=== PATIENT | female | born 1945 | race African-American/Black ===

== ENCOUNTER 2017-07-28 23:17 | Inpatient (IN) | payer MEDICARE ==
[~2017-07-28] VITALS: Ht 157.5 cm; Wt 89.4 kg
[~2017-07-28 23:17] MED LIST: CINA30 PO; CLOP75TA33 PO; DOCU-150 PO; ISOS30TA6 PO; LISI-604 PO; OMEP20TA2 PO; PRAV40TA58 PO; SEVE800T8 PO
[2017-07-29] VITALS (14 sets, daily range): BP systolic 87–159; BP diastolic 40–80
[2017-07-29] MEDS ORDERED: MORPHINE SULFATE 4 MG/ML CPJ (NOT FOR IM USE) IV STA
[2017-07-29 00:39] LABS: BASOPHILS % 0.5 % (0.0-2.0); EOSINOPHILS % 2.8 % (0.0-5.0); HEMATOCRIT. 41.1 % (36.0-48.0); HEMOGLOBIN. 13.5 g/dL (12.0-16.0); MEAN CORPUSCULAR HEMOGLOBIN 29.6 pg (28.0-32.0); MEAN CORPUSCULAR VOLUME 90.3 fL (81.0-99.0); MEAN PLATELET VOLUME 10.9 fl (7.4-10.4); MONOCYTES % 5.2 % (2.0-8.0); NEUTROPHILS % 78.5 % (40.0-76.0); PLATELET 142 x1000/uL (130-400); RED BLOOD CELL COUNT 4.55 mill/uL (4.2-5.4); RED CELL DISTRIBUTION WIDTH 18.3 % (11.6-14.6)
[2017-07-29 00:44] LABS: CHLORIDE 101 mEq/L (98-107)
[2017-07-29 01:14] LABS: INR 1.2
[2017-07-29] MEDS ORDERED: MORPHINE SULFATE 4 MG/ML CPJ (NOT FOR IM USE) IV ONE (01:45)
[2017-07-29] MEDS ORDERED: SODIUM CHLORIDE 0.9% 1,000 ML IV ONE ×2 (01:45→12:12)
[2017-07-29] MEDS ORDERED: PIPERACILLIN/TAZOBACTAM 3.375GM/50ML PREMIX IV ONE ×2 (02:00→09:00)
[2017-07-29] MEDS ORDERED: HYDROMORPHONE HCL/PF 2MG/ML CPJ IV PRN ×2 (06:30→12:15)
[2017-07-29] MEDS ORDERED: CLONIDINE 0.1MG TABLET PO PRN (06:30)
[2017-07-29] MEDS ORDERED: ENOXAPARIN 40MG/0.4ML SYR SUBCUT SCH (06:30)
[2017-07-29] MEDS ORDERED: ACETAMINOPHEN 325MG TABLET PO PRN (06:30)
[2017-07-29] MEDS ORDERED: DIPHENHYDRAMINE 50MG/ML VIAL IV PRN (06:30)
[2017-07-29] MEDS ORDERED: ONDANSETRON HCL 4MG/2ML VIAL IV PRN ×3 (06:30→12:15)
[2017-07-29] MEDS ORDERED: MAGNESIUM/ALUMINUM HYDROXIDE/SIMETHICONE 30ML UDC PO PRN (06:30)
[2017-07-29] MEDS ORDERED: DOCUSATE SODIUM 100MG CAPSULE PO PRN (06:30)
[2017-07-29] MEDS ORDERED: NA PHOS,M-B/NA PHOS,DI-BA ENEMA 118ML PR PRN (06:30)
[2017-07-29] MEDS ORDERED: LORAZEPAM 2MG/ML CPJ IV PRN (06:30)
[2017-07-29] MEDS ORDERED: IPRATROPIUM/ALBUTEROL 0.5-3(2.5)MG/3ML NEB INH PRN (06:30)
[2017-07-29] MEDS: HYDROCODONE/ACETAMINOPHEN 5/325MG TABLET PO PRN (07:12)
[2017-07-29] MEDS ORDERED: OMEPRAZOLE 20MG CAPSULE EXTENDED RELEASE PO SCH (07:20)
[2017-07-29] MEDS ORDERED: MEDICATION NOT ON FORMULARY EA (Omeprazole 1 TAB) PO SCH (09:00)
[2017-07-29] MEDS ORDERED: DOCUSATE SODIUM 100MG CAPSULE PO SCH (09:00)
[2017-07-29] MEDS ORDERED: LEVOFLOXACIN 500MG PREMIX 100 ML IV NR (09:00)
[2017-07-29] MEDS ORDERED: MEDICATION NOT ON FORMULARY EA (Pravastatin Sodium 1 TAB) PO SCH (09:00)
[2017-07-29] MEDS ORDERED: PIPERACILLIN/TAZ 3.375G PREMIX 50 ML IV NR (09:01)
[2017-07-29] MEDS ORDERED: METRONIDAZOLE 500 MG PREMIX 0 ML IV ONE (09:09)
[2017-07-29] MEDS ORDERED: LEVOFLOXACIN 500MG PREMIX 0 ML IV ONE (09:10)
[2017-07-29] MEDS ORDERED: BUPIVACAINE HCL 0.5% (5MG/ML) 50ML ONE (09:10)
[2017-07-29] MEDS ORDERED: ROCURONIUM BROMIDE 10MG/ML VIAL 5ML IV ONE (09:15)
[2017-07-29] MEDS ORDERED: SUCCINYLCHOLINE CHLORIDE 200MG/10ML VIAL IV ONE (09:15)
[2017-07-29] MEDS ORDERED: PHENYLEPHRINE HCL 10 MG/ML 1ML (IV VIAL) IV ONE (09:15)
[2017-07-29] MEDS ORDERED: SODIUM CHLORIDE 0.9% 100 ML IV ONE (09:15)
[2017-07-29] MEDS ORDERED: EPHEDRINE SULFATE 50MG/ML VIAL ONE (09:15)
[2017-07-29] MEDS ORDERED: PROPOFOL 200MG/20ML VIAL IV ONE (09:15)
[2017-07-29] MEDS ORDERED: LIDOCAINE HCL/PF 1% 10 MG/ML 5ML VIAL ONE (09:15)
[2017-07-29] MEDS ORDERED: ALBUMIN HUMAN 12.5G/250ML (5%) IV ONE (09:22)
[2017-07-29] MEDS ORDERED: FENTANYL CITRATE/PF 50MCG/ML 2ML VIAL ONE (09:22)
[2017-07-29] MEDS ORDERED: MIDAZOLAM HCL 2 MG/2 ML VIAL ONE (09:22)
[2017-07-29] MEDS ORDERED: METRONIDAZOLE 500 MG PREMIX 100 ML IV SCH ×2 (10:00→14:00)
[2017-07-29] MEDS ORDERED: FAMOTIDINE 20MG/2ML VIAL IV SCH (10:40)
[2017-07-29] MEDS ORDERED: ETOMIDATE 2MG/ML 10ML VIAL IV ONE (10:47)
[2017-07-29] MEDS ORDERED: DEXAMETHASONE 4MG/ML 1ML VIAL ONE (11:15)
[2017-07-29] MEDS ORDERED: DEXT 5%/0.45% NACL KCL 20MEQ/L 1,000 ML IV SCH (11:30)
[2017-07-29 14:14] LABS: BG CARBOXYHEMOGLOBIN 1.6 % (0.5-1.5); BG DEOXYHEMOGLOBIN 0.7 % (0.0-5.0); BG FRACTION INSPIRED OXYGEN 50; BG HCO3 ACT 20.5 mmol/L (22.0-26.0); BG METHEMOGLOBIN 0.3 % (0.0-1.5); BG OXYGEN SATURATION 99.3 % (92.0-98.5); BG OXYHEMOGLOBIN 97.4 % (94.0-97.0); BG PCO2 29.1 mmHg (35.0-45.0); BG PH 7.465 (7.350-7.450); BG PO2 169.4 mmHg (75.0-100.0); BG PRESSURE SUPPORT 24; BG SAMPLE SITE LEFT RADIAL; BG TIDAL VOLUME(mL) 500 mL; BG TOTAL HEMOGLOBIN 14.2 g/dL (12.0-18.0); BG VENT MODE VENT - SIMV; BG VENT RATE 10 set
[2017-07-29] MEDS: MORPHINE SULFATE 4 MG/ML CPJ (NOT FOR IM USE) IV PRN (15:23)
[2017-07-29] MEDS ORDERED: PIPERACILLIN/TAZOBACTAM 2.25 G in DEXTROSE 5% WATER 50 ML IV SCH (18:00)
[2017-07-29] MEDS ORDERED: PROPOFOL 10MG/ML 100ML 100 ML IV PRN (18:46)
[2017-07-29 19:18] LABS: BG BASE EXCESS -4.4 mmol/L (-2.0-2.0); BG DEOXYHEMOGLOBIN 1.4 % (0.0-5.0); BG FRACTION INSPIRED OXYGEN 40; BG HCO3 ACT 20.4 mmol/L (22.0-26.0); BG METHEMOGLOBIN 0.1 % (0.0-1.5); BG OXYGEN SATURATION 98.6 % (92.0-98.5); BG OXYHEMOGLOBIN 97.5 % (94.0-97.0); BG PCO2 36.8 mmHg (35.0-45.0); BG PH 7.362 (7.350-7.450); BG PO2 132.5 mmHg (75.0-100.0); BG PRESSURE SUPPORT 8; BG SAMPLE SITE LEFT RADIAL; BG TOTAL HEMOGLOBIN 13.6 g/dL (12.0-18.0); BG VENT MODE VENT - CPAP
[2017-07-29] MEDS: IPRATROPIUM/ALBUTEROL 0.5-3(2.5)MG/3ML NEB HHN SCH (20:19)
[2017-07-29] MEDS: ATORVASTATIN CALCIUM 10MG TABLET PO SCH (20:26)
[2017-07-29] MEDS: PIPERACILLIN/TAZOBACTAM 2.25 G in DEXTROSE 5% WATER 50 ML IV SCH (20:32)
[2017-07-30] VITALS (58 sets, daily range): BP systolic 93–164; BP diastolic 32–118
[2017-07-30] MEDS: IPRATROPIUM/ALBUTEROL 0.5-3(2.5)MG/3ML NEB HHN SCH ×4 (01:17→20:46)
[2017-07-30] MEDS: PIPERACILLIN/TAZOBACTAM 2.25 G in DEXTROSE 5% WATER 50 ML IV SCH (03:45)
[2017-07-30 05:41] LABS: HEMATOCRIT. 39.2 % (36.0-48.0); HEMOGLOBIN. 12.8 g/dL (12.0-16.0); MEAN CORPUSCULAR HEMOGLOBIN 29.8 pg (28.0-32.0); MEAN CORPUSCULAR VOLUME 91.1 fL (81.0-99.0); MEAN PLATELET VOLUME 11.1 fl (7.4-10.4); PLATELET 112 x1000/uL (130-400); RED CELL DISTRIBUTION WIDTH 19.1 % (11.6-14.6)
[2017-07-30 06:22] LABS: CHLORIDE 102 mEq/L (98-107)
[2017-07-30 06:34] LABS: LDL CHOLESTEROL 39 mg/dL (5-100)
[2017-07-30 06:36] LABS: HDL CHOLESTEROL 35 mg/dL (40-59); T4 FREE 0.98 ng/dL (0.76-1.46)
[2017-07-30] MEDS: SEVELAMER CARBONATE 800 MG TABLET PO SCH ×3 (07:00→17:00)
[2017-07-30 07:57] LABS: BG BASE EXCESS -6.1 mmol/L (-2.0-2.0); BG CARBOXYHEMOGLOBIN 0.7 % (0.5-1.5); BG FRACTION INSPIRED OXYGEN 21; BG HCO3 ACT 18.8 mmol/L (22.0-26.0); BG METHEMOGLOBIN 0.3 % (0.0-1.5); BG PCO2 35.5 mmHg (35.0-45.0); BG PH 7.342 (7.350-7.450); BG PO2 86.9 mmHg (75.0-100.0); BG SAMPLE SITE LEFT BRACHIAL; BG TOTAL HEMOGLOBIN 13.3 g/dL (12.0-18.0); BG VENT MODE ROOM AIR
[2017-07-30] MEDS: ENOXAPARIN 30MG/0.3ML SYR SUBCUT SCH (09:00)
[2017-07-30] MEDS: ISOSORBIDE MONONITRATE 30MG TABLET SR 24HR PO SCH (09:00)
[2017-07-30] MEDS: LISINOPRIL 20MG TABLET PO SCH (09:00)
[2017-07-30] MEDS: CLOPIDOGREL 75MG TABLET PO SCH (09:00)
[2017-07-30 10:44] LABS: NUCLEATED RED BLOOD CELLS 2 /100 WBC; PLATELET ESTIMATE SLIGHTLY DECREASED
[2017-07-30] MEDS: DOCUSATE SODIUM 250MG CAPSULE PO SCH (12:00)
[2017-07-30] MEDS: DEXT 5%/0.45% NACL 1000ML 1,000 ML IV SCH ×2 (13:03→23:11)
[2017-07-30] MEDS: PIPERACILLIN/TAZ 2.25G PREMIX 50 ML IV SCH ×2 (15:27→23:09)
[2017-07-30] MEDS: CINACALCET HCL 30MG TABLET PO SCH (17:00)
[2017-07-30] MEDS: MORPHINE SULFATE 4 MG/ML CPJ (NOT FOR IM USE) IV PRN (20:10)
[2017-07-30] MEDS: ATORVASTATIN CALCIUM 10MG TABLET PO SCH (21:02)
[2017-07-30 23:55] LABS: CREATINE KINASE MB FRACTION 1.3 ng/mL (0.5-3.6)
[2017-07-31] VITALS (44 sets, daily range): BP systolic 82–169; BP diastolic 40–112
[2017-07-31] MEDS: IPRATROPIUM/ALBUTEROL 0.5-3(2.5)MG/3ML NEB HHN SCH ×4 (01:30→20:24)
[2017-07-31 05:58] LABS: HEMATOCRIT. 37.5 % (36.0-48.0); HEMOGLOBIN. 12.4 g/dL (12.0-16.0); MEAN CORPUSCULAR HEMOGLOBIN 30.1 pg (28.0-32.0); MEAN PLATELET VOLUME 11.2 fl (7.4-10.4); PLATELET 108 x1000/uL (130-400); RED BLOOD CELL COUNT 4.12 mill/uL (4.2-5.4)
[2017-07-31 06:12] LABS: CREATINE KINASE MB FRACTION 1.5 ng/mL (0.5-3.6)
[2017-07-31] MEDS: PIPERACILLIN/TAZ 2.25G PREMIX 50 ML IV SCH ×3 (06:26→17:02)
[2017-07-31] MEDS: SEVELAMER CARBONATE 800 MG TABLET PO SCH ×3 (06:26→16:13)
[2017-07-31] MEDS: MORPHINE SULFATE 4 MG/ML CPJ (NOT FOR IM USE) IV PRN ×3 (06:41→17:03)
[2017-07-31 07:20] LABS: NUCLEATED RED BLOOD CELLS 1 /100 WBC; PLATELET ESTIMATE SLIGHTLY DECREASED
[2017-07-31] MEDS: ENOXAPARIN 30MG/0.3ML SYR SUBCUT SCH (09:00)
[2017-07-31] MEDS: LISINOPRIL 20MG TABLET PO SCH (09:00)
[2017-07-31] MEDS: CLOPIDOGREL 75MG TABLET PO SCH (09:00)
[2017-07-31] MEDS: ISOSORBIDE MONONITRATE 30MG TABLET SR 24HR PO SCH (09:00)
[2017-07-31] MEDS ORDERED: LEVOFLOXACIN 250MG PREMIX 50 ML IV SCH (09:00)
[2017-07-31] MEDS: DOCUSATE SODIUM 250MG CAPSULE PO SCH (09:00)
[2017-07-31] MEDS: PANTOPRAZOLE SODIUM 40 MG/VIAL IV SCH (09:10)
[2017-07-31] MEDS: DEXT 5%/0.45% NACL 1000ML 1,000 ML IV SCH ×2 (10:34→22:18)
[2017-07-31] MEDS: CINACALCET HCL 30MG TABLET PO SCH (16:13)
[2017-07-31 17:48] LABS: CREATINE KINASE MB FRACTION 1.2 ng/mL (0.5-3.6)
[2017-07-31] MEDS: HYDRALAZINE 20MG/ML VIAL IV PRN (20:14)
[2017-07-31] MEDS: ATORVASTATIN CALCIUM 10MG TABLET PO SCH (20:51)
[2017-08-01] VITALS (28 sets, daily range): BP systolic 130–182; BP diastolic 63–97
[2017-08-01] MEDS: PIPERACILLIN/TAZ 2.25G PREMIX 50 ML IV SCH ×4 (00:49→20:00)
[2017-08-01] MEDS: MORPHINE SULFATE 4 MG/ML CPJ (NOT FOR IM USE) IV PRN ×2 (00:52→08:47)
[2017-08-01] MEDS: IPRATROPIUM/ALBUTEROL 0.5-3(2.5)MG/3ML NEB HHN SCH ×2 (01:59→20:08)
[2017-08-01] MEDS: HYDRALAZINE 20MG/ML VIAL IV PRN (03:26)
[2017-08-01 06:01] LABS: HEMATOCRIT. 36.9 % (36.0-48.0); HEMOGLOBIN. 12.3 g/dL (12.0-16.0); MEAN PLATELET VOLUME 10.3 fl (7.4-10.4); PLATELET 111 x1000/uL (130-400); RED CELL DISTRIBUTION WIDTH 19.1 % (11.6-14.6)
[2017-08-01 06:23] LABS: PHOSPHORUS 5.7 mg/dL (2.5-4.9)
[2017-08-01] MEDS: SEVELAMER CARBONATE 800 MG TABLET PO SCH ×3 (06:24→18:00)
[2017-08-01 07:25] LABS: NUCLEATED RED BLOOD CELLS 2 /100 WBC; PLATELET ESTIMATE SLIGHTLY DECREASED
[2017-08-01] MEDS: DEXT 5%/0.45% NACL 1000ML 1,000 ML IV SCH ×2 (08:55→18:57)
[2017-08-01] MEDS: ISOSORBIDE MONONITRATE 30MG TABLET SR 24HR PO SCH (09:00)
[2017-08-01] MEDS: LISINOPRIL 20MG TABLET PO SCH (09:00)
[2017-08-01] MEDS: PANTOPRAZOLE SODIUM 40 MG/VIAL IV SCH (09:00)
[2017-08-01] MEDS: CLOPIDOGREL 75MG TABLET PO SCH (09:00)
[2017-08-01] MEDS: DOCUSATE SODIUM 250MG CAPSULE PO SCH (09:00)
[2017-08-01] MEDS: ENOXAPARIN 30MG/0.3ML SYR SUBCUT SCH (09:00)
[2017-08-01] MEDS ORDERED: DOCUSATE SODIUM 100MG CAPSULE PO PRN (11:00)
[2017-08-01] MEDS: CINACALCET HCL 30MG TABLET PO SCH (17:00)
[2017-08-01] MEDS: ATORVASTATIN CALCIUM 10MG TABLET PO SCH (21:00)
[2017-08-01] MEDS: CARVEDILOL 3.125 MG TABLET PO SCH ×2 (21:00→22:00)
[2017-08-02] VITALS (12 sets, daily range): BP systolic 88–146; BP diastolic 50–76
[2017-08-02] MEDS: IPRATROPIUM/ALBUTEROL 0.5-3(2.5)MG/3ML NEB HHN SCH ×4 (00:31→21:36)
[2017-08-02] MEDS: PIPERACILLIN/TAZ 2.25G PREMIX 50 ML IV SCH ×3 (01:44→17:31)
[2017-08-02] MEDS: DEXT 5%/0.45% NACL 1000ML 1,000 ML IV SCH ×3 (01:45→20:45)
[2017-08-02] MEDS ORDERED: LIDOCAINE HCL/PF 1% 10 MG/ML 5ML VIAL ONE (08:53)
[2017-08-02] MEDS: ISOSORBIDE MONONITRATE 30MG TABLET SR 24HR PO SCH (09:00)
[2017-08-02] MEDS: LISINOPRIL 20MG TABLET PO SCH (09:00)
[2017-08-02] MEDS: CARVEDILOL 3.125 MG TABLET PO SCH ×2 (09:00→21:00)
[2017-08-02 09:10] LABS: HEMATOCRIT. 39.2 % (36.0-48.0); HEMOGLOBIN. 12.4 g/dL (12.0-16.0); MEAN CORPUSCULAR HEMOGLOBIN 29.1 pg (28.0-32.0); MEAN CORPUSCULAR VOLUME 91.8 fL (81.0-99.0); PLATELET 89 x1000/uL (130-400); RED BLOOD CELL COUNT 4.27 mill/uL (4.2-5.4); RED CELL DISTRIBUTION WIDTH 18.9 % (11.6-14.6)
[2017-08-02] MEDS ORDERED: HEPARIN 100 UNITS/1 ML VIAL IVF PRN (09:15)
[2017-08-02] MEDS: SEVELAMER CARBONATE 800 MG TABLET PO SCH ×3 (09:49→17:31)
[2017-08-02] MEDS: DOCUSATE SODIUM 250MG CAPSULE PO SCH (09:49)
[2017-08-02] MEDS: PANTOPRAZOLE SODIUM 40 MG/VIAL IV SCH (09:49)
[2017-08-02] MEDS: ENOXAPARIN 30MG/0.3ML SYR SUBCUT SCH (09:53)
[2017-08-02] MEDS: CLOPIDOGREL 75MG TABLET PO SCH (09:56)
[2017-08-02] MEDS: CINACALCET HCL 30MG TABLET PO SCH (17:31)
[2017-08-02] MEDS: ATORVASTATIN CALCIUM 10MG TABLET PO SCH (21:00)
[2017-08-03] VITALS (12 sets, daily range): BP systolic 88–114; BP diastolic 21–71
[2017-08-03] MEDS: PIPERACILLIN/TAZ 2.25G PREMIX 50 ML IV SCH ×3 (01:51→17:28)
[2017-08-03] MEDS: IPRATROPIUM/ALBUTEROL 0.5-3(2.5)MG/3ML NEB HHN SCH ×4 (02:49→21:04)
[2017-08-03] MEDS: HYDROCODONE/ACETAMINOPHEN 5/325MG TABLET PO PRN (03:31)
[2017-08-03] MEDS: DEXT 5%/0.45% NACL 1000ML 1,000 ML IV SCH ×2 (05:51→17:29)
[2017-08-03 06:39] LABS: HEMATOCRIT 36.7 % (36.0-48.0); MEAN CORPUSCULAR HEMOGLOBIN 29.2 pg (28.0-32.0); MEAN CORPUSCULAR VOLUME 89.3 fL (81.0-99.0); PLATELET 97 x1000/uL (130-400); RED BLOOD CELL COUNT 4.11 mill/uL (4.2-5.4); RED CELL DISTRIBUTION WIDTH 18.3 % (11.6-14.6)
[2017-08-03] MEDS: ISOSORBIDE MONONITRATE 30MG TABLET SR 24HR PO SCH (08:53)
[2017-08-03] MEDS: PANTOPRAZOLE SODIUM 40 MG/VIAL IV SCH (08:53)
[2017-08-03] MEDS: CLOPIDOGREL 75MG TABLET PO SCH (08:53)
[2017-08-03] MEDS: DOCUSATE SODIUM 250MG CAPSULE PO SCH (08:53)
[2017-08-03] MEDS: BISACODYL 5MG TABLET PO PRN (08:53)
[2017-08-03] MEDS: SEVELAMER CARBONATE 800 MG TABLET PO SCH ×3 (08:53→17:28)
[2017-08-03] MEDS: CARVEDILOL 3.125 MG TABLET PO SCH ×2 (08:53→20:28)
[2017-08-03] MEDS: LISINOPRIL 20MG TABLET PO SCH (08:54)
[2017-08-03] MEDS: ENOXAPARIN 30MG/0.3ML SYR SUBCUT SCH (08:55)
[2017-08-03 12:44] LABS: NUCLEATED RED BLOOD CELLS 1 /100 WBC; PLATELET ESTIMATE DECREASED
[2017-08-03] MEDS: CINACALCET HCL 30MG TABLET PO SCH (17:28)
[2017-08-03] MEDS: ATORVASTATIN CALCIUM 10MG TABLET PO SCH (20:38)
[2017-08-03] MEDS: SODIUM CHLORIDE 0.9% 250 ML IV SCH ×2 (22:40→23:45)
[2017-08-04] VITALS (12 sets, daily range): BP systolic 92–119; BP diastolic 42–77
[2017-08-04] MEDS: PIPERACILLIN/TAZ 2.25G PREMIX 50 ML IV SCH ×2 (00:20→09:04)
[2017-08-04] MEDS: IPRATROPIUM/ALBUTEROL 0.5-3(2.5)MG/3ML NEB HHN SCH ×4 (01:15→20:59)
[2017-08-04] MEDS: DEXT 5%/0.45% NACL 1000ML 1,000 ML IV SCH ×3 (02:59→22:45)
[2017-08-04] MEDS: ISOSORBIDE MONONITRATE 30MG TABLET SR 24HR PO SCH (09:00)
[2017-08-04] MEDS: CARVEDILOL 3.125 MG TABLET PO SCH ×2 (09:00→20:36)
[2017-08-04] MEDS: LISINOPRIL 20MG TABLET PO SCH (09:00)
[2017-08-04] MEDS: SEVELAMER CARBONATE 800 MG TABLET PO SCH ×3 (09:01→17:14)
[2017-08-04] MEDS: CLOPIDOGREL 75MG TABLET PO SCH (09:02)
[2017-08-04] MEDS: DOCUSATE SODIUM 250MG CAPSULE PO SCH (09:03)
[2017-08-04] MEDS: PANTOPRAZOLE SODIUM 40 MG/VIAL IV SCH (09:03)
[2017-08-04] MEDS: BISACODYL 5MG TABLET PO PRN (09:03)
[2017-08-04] MEDS: ENOXAPARIN 30MG/0.3ML SYR SUBCUT SCH (09:05)
[2017-08-04] MEDS ORDERED: BISACODYL 5MG TABLET PO NR (12:15)
[2017-08-04] MEDS ORDERED: LEVOFLOXACIN 500MG TABLET PO NR (13:45)
[2017-08-04] MEDS: CINACALCET HCL 30MG TABLET PO SCH (17:12)
[2017-08-04] MEDS: ATORVASTATIN CALCIUM 10MG TABLET PO SCH (20:31)
[2017-08-04] MEDS: AMOXICILLIN/POTASSIUM CLAVULANATE 500/125MG TAB PO SCH (20:31)
[2017-08-05] VITALS (12 sets, daily range): BP systolic 94–130; BP diastolic 27–71
[2017-08-05] MEDS: IPRATROPIUM/ALBUTEROL 0.5-3(2.5)MG/3ML NEB HHN SCH ×4 (00:52→20:42)
[2017-08-05] MEDS: GUAIFENESIN 200MG/10ML SUGAR FREE UDC PO PRN (06:27)
[2017-08-05] MEDS: LISINOPRIL 20MG TABLET PO SCH (09:00)
[2017-08-05] MEDS: CARVEDILOL 3.125 MG TABLET PO SCH ×2 (09:00→21:00)
[2017-08-05] MEDS: ISOSORBIDE MONONITRATE 30MG TABLET SR 24HR PO SCH (09:00)
[2017-08-05] MEDS: SEVELAMER CARBONATE 800 MG TABLET PO SCH ×3 (10:00→18:57)
[2017-08-05] MEDS: CLOPIDOGREL 75MG TABLET PO SCH (10:01)
[2017-08-05] MEDS: AMOXICILLIN/POTASSIUM CLAVULANATE 500/125MG TAB PO SCH (10:01)
[2017-08-05] MEDS: PANTOPRAZOLE SODIUM 40 MG/VIAL IV SCH (10:01)
[2017-08-05] MEDS: DOCUSATE SODIUM 250MG CAPSULE PO SCH (10:01)
[2017-08-05] MEDS: ENOXAPARIN 30MG/0.3ML SYR SUBCUT SCH (10:02)
[2017-08-05] MEDS ORDERED: ONDANSETRON HCL 4MG/2ML VIAL IV PRN (11:15)
[2017-08-05] MEDS: PIPERACILLIN/TAZOBACTAM 2.25 G in DEXTROSE 5% WATER 50 ML IV SCH ×2 (16:23→22:09)
[2017-08-05 17:47] LABS: BASOPHILS % 0.2 % (0.0-2.0); EOSINOPHILS % 5.5 % (0.0-5.0); HEMOGLOBIN. 12.6 g/dL (12.0-16.0); LYMPHOCYTES % 14.6 % (20.0-50.0); MEAN CORPUSCULAR HEMOGLOBIN 30.1 pg (28.0-32.0); MEAN CORPUSCULAR VOLUME 88.3 fL (81.0-99.0); MEAN PLATELET VOLUME 9.1 fl (7.4-10.4); MONOCYTES % 11.9 % (2.0-8.0); NEUTROPHILS % 67.8 % (40.0-76.0); PLATELET 126 x1000/uL (130-400); RED BLOOD CELL COUNT 4.19 mill/uL (4.2-5.4); RED CELL DISTRIBUTION WIDTH 18.4 % (11.6-14.6)
[2017-08-05] MEDS: CINACALCET HCL 30MG TABLET PO SCH (18:57)
[2017-08-05] MEDS: ATORVASTATIN CALCIUM 10MG TABLET PO SCH (22:09)
[2017-08-06] VITALS (11 sets, daily range): BP systolic 82–131; BP diastolic 22–83
[2017-08-06] MEDS: IPRATROPIUM/ALBUTEROL 0.5-3(2.5)MG/3ML NEB HHN SCH ×4 (02:07→21:46)
[2017-08-06] MEDS: PIPERACILLIN/TAZOBACTAM 2.25 G in DEXTROSE 5% WATER 50 ML IV SCH ×3 (05:57→21:36)
[2017-08-06] MEDS: SEVELAMER CARBONATE 800 MG TABLET PO SCH ×3 (08:00→17:46)
[2017-08-06] MEDS: ISOSORBIDE MONONITRATE 30MG TABLET SR 24HR PO SCH (09:00)
[2017-08-06] MEDS: LISINOPRIL 20MG TABLET PO SCH (09:00)
[2017-08-06] MEDS: CARVEDILOL 3.125 MG TABLET PO SCH ×2 (09:00→21:00)
[2017-08-06] MEDS: DOCUSATE SODIUM 250MG CAPSULE PO SCH (09:00)
[2017-08-06] MEDS: CLOPIDOGREL 75MG TABLET PO SCH (09:57)
[2017-08-06] MEDS: ENOXAPARIN 30MG/0.3ML SYR SUBCUT SCH (09:57)
[2017-08-06] MEDS: PANTOPRAZOLE SODIUM 40 MG/VIAL IV SCH (09:57)
[2017-08-06] MEDS: GUAIFENESIN 200MG/10ML SUGAR FREE UDC PO PRN (09:57)
[2017-08-06] MEDS ORDERED: LEVOFLOXACIN 250MG TABLET PO SCH (11:00)
[2017-08-06] MEDS: CINACALCET HCL 30MG TABLET PO SCH (17:46)
[2017-08-06] MEDS: ATORVASTATIN CALCIUM 10MG TABLET PO SCH (21:34)
[2017-08-07] VITALS (23 sets, daily range): BP systolic 79–139; BP diastolic 33–96
[2017-08-07] MEDS: IPRATROPIUM/ALBUTEROL 0.5-3(2.5)MG/3ML NEB HHN SCH ×4 (04:08→20:35)
[2017-08-07] MEDS: PIPERACILLIN/TAZOBACTAM 2.25 G in DEXTROSE 5% WATER 50 ML IV SCH ×3 (05:07→22:37)
[2017-08-07] MEDS: SEVELAMER CARBONATE 800 MG TABLET PO SCH ×3 (07:50→18:44)
[2017-08-07] MEDS: PANTOPRAZOLE SODIUM 40 MG/VIAL IV SCH (08:35)
[2017-08-07] MEDS ORDERED: LIDOCAINE HCL/PF 1% 10 MG/ML 5ML VIAL ONE (08:38)
[2017-08-07] MEDS ORDERED: SODIUM BICARBONATE 4% (2.4MEQ) 5ML VIAL IV ONE (08:38)
[2017-08-07] MEDS: LISINOPRIL 20MG TABLET PO SCH (09:00)
[2017-08-07] MEDS: CARVEDILOL 3.125 MG TABLET PO SCH ×2 (09:00→21:00)
[2017-08-07] MEDS: CLOPIDOGREL 75MG TABLET PO SCH (09:00)
[2017-08-07] MEDS: ISOSORBIDE MONONITRATE 30MG TABLET SR 24HR PO SCH (09:00)
[2017-08-07] MEDS: DOCUSATE SODIUM 250MG CAPSULE PO SCH ×2 (09:00→11:52)
[2017-08-07] MEDS: ENOXAPARIN 30MG/0.3ML SYR SUBCUT SCH (09:00)
[2017-08-07] MEDS ORDERED: FENTANYL CITRATE/PF 50MCG/ML 2ML VIAL ONE (09:17)
[2017-08-07] MEDS ORDERED: FENTANYL CITRATE/PF 50MCG/ML 2ML VIAL IV ONE (10:00)
[2017-08-07] MEDS: GUAIFENESIN 200MG/10ML SUGAR FREE UDC PO PRN (11:51)
[2017-08-07 12:35] LABS: BASOPHILS % 0.4 % (0.0-2.0); EOSINOPHILS % 2.9 % (0.0-5.0); HEMOGLOBIN. 11.9 g/dL (12.0-16.0); LYMPHOCYTES % 8.9 % (20.0-50.0); MEAN CORPUSCULAR HEMOGLOBIN 29.2 pg (28.0-32.0); MEAN CORPUSCULAR VOLUME 88.2 fL (81.0-99.0); MONOCYTES % 9.6 % (2.0-8.0); NEUTROPHILS % 78.2 % (40.0-76.0); PLATELET 119 x1000/uL (130-400); RED BLOOD CELL COUNT 4.08 mill/uL (4.2-5.4); RED CELL DISTRIBUTION WIDTH 17.9 % (11.6-14.6)
[2017-08-07] MEDS ORDERED: NA PHOS,M-B/NA PHOS,DI-BA ENEMA 118ML PR NR (13:00)
[2017-08-07] MEDS ORDERED: BISACODYL 5MG TABLET PO NR (13:00)
[2017-08-07] MEDS: CINACALCET HCL 30MG TABLET PO SCH (16:40)
[2017-08-07] MEDS: ATORVASTATIN CALCIUM 10MG TABLET PO SCH (21:52)
[2017-08-08] VITALS (17 sets, daily range): BP systolic 53–112; BP diastolic 30–73
[2017-08-08] MEDS: IPRATROPIUM/ALBUTEROL 0.5-3(2.5)MG/3ML NEB HHN SCH ×4 (01:11→20:37)
[2017-08-08] MEDS: PIPERACILLIN/TAZOBACTAM 2.25 G in DEXTROSE 5% WATER 50 ML IV SCH (05:29)
[2017-08-08 07:41] LABS: HEMATOCRIT. 34.8 % (36.0-48.0); HEMOGLOBIN. 11.7 g/dL (12.0-16.0); MEAN CORPUSCULAR HEMOGLOBIN 29.7 pg (28.0-32.0); MEAN CORPUSCULAR VOLUME 88.4 fL (81.0-99.0); MEAN PLATELET VOLUME 9.3 fl (7.4-10.4); PLATELET 117 x1000/uL (130-400); RED BLOOD CELL COUNT 3.94 mill/uL (4.2-5.4); RED CELL DISTRIBUTION WIDTH 18.1 % (11.6-14.6)
[2017-08-08] MEDS: SEVELAMER CARBONATE 800 MG TABLET PO SCH ×3 (08:46→17:42)
[2017-08-08] MEDS: PANTOPRAZOLE SODIUM 40 MG/VIAL IV SCH (08:46)
[2017-08-08] MEDS: DOCUSATE SODIUM 250MG CAPSULE PO SCH (08:46)
[2017-08-08] MEDS: ISOSORBIDE MONONITRATE 30MG TABLET SR 24HR PO SCH (08:46)
[2017-08-08] MEDS: LISINOPRIL 20MG TABLET PO SCH (08:47)
[2017-08-08] MEDS: CARVEDILOL 3.125 MG TABLET PO SCH (08:47)
[2017-08-08] MEDS: CLOPIDOGREL 75MG TABLET PO SCH (08:47)
[2017-08-08] MEDS: ENOXAPARIN 30MG/0.3ML SYR SUBCUT SCH (08:48)
[2017-08-08 14:24] LABS: PLATELET ESTIMATE SLIGHTLY DECREASED
[2017-08-08] MEDS ORDERED: LEVOFLOXACIN 250MG TABLET PO SCH (14:30)
[2017-08-08] MEDS: CINACALCET HCL 30MG TABLET PO SCH (17:42)
[2017-08-08] MEDS ORDERED: AMOXICILLIN/POTASSIUM CLAVULANATE 500/125MG TAB PO SCH (21:00)
[2017-08-08] MEDS: ATORVASTATIN CALCIUM 10MG TABLET PO SCH (21:01)
== END 2017-08-09 00:03 | disposition home health service (06) | DRG 326 ==
LOC: ER 23:19 → EDBEDREQTM 07-29 01:55 → EDBEDREQSVC 07-29 01:55 → EDBEDREQ 07-29 01:55 → 6EST 07-29 03:11 → ENRESERV 07-29 03:11 → EDBEDREQ 07-29 04:41 → MICUSO 07-29 18:21 → 5EST 08-01 11:14
PROVIDERS: ADMIT Internal Medicine; ATTEND Internal Medicine
PROC: 5A1935Z Respiratory Ventilation, Less than 24 Consecutive Hours (ICD-10-PCS; 2017-07-29)
PROC: 0BH17EZ Insertion of Endotracheal Airway into Trachea, Via Natural or Artificial Opening (ICD-10-PCS; 2017-07-29)
PROC: 0DU707Z Supplement Stomach, Pylorus with Autologous Tissue Substitute, Open Approach (ICD-10-PCS; principal; 2017-07-29 09:30)
PROC: 06HM33Z Insertion of Infusion Device into Right Femoral Vein, Percutaneous Approach (ICD-10-PCS; 2017-08-02)
PROC: B54BZZA Ultrasonography of Right Lower Extremity Veins, Guidance (ICD-10-PCS; 2017-08-02)
PROC: B5181ZA Fluoroscopy of Superior Vena Cava using Low Osmolar Contrast, Guidance (ICD-10-PCS; 2017-08-07)
PROC: 02HV33Z Insertion of Infusion Device into Superior Vena Cava, Percutaneous Approach (ICD-10-PCS; 2017-08-07)
PROC: B548ZZA Ultrasonography of Superior Vena Cava, Guidance (ICD-10-PCS; 2017-08-07)
DX: K27.5 Chronic or unspecified peptic ulcer, site unspecified, with perforation (principal); K65.9 Peritonitis, unspecified; J96.00 Acute respiratory failure, unspecified whether with hypoxia or hypercapnia; I13.2 Hypertensive heart and chronic kidney disease with heart failure and with stage 5 chronic kidney disease, or end stage renal disease; G93.40 Encephalopathy, unspecified; E46 Unspecified protein-calorie malnutrition; I50.9 Heart failure, unspecified; D69.6 Thrombocytopenia, unspecified; E11.22 Type 2 diabetes mellitus with diabetic chronic kidney disease; N18.6 End stage renal disease; K56.7 Ileus, unspecified; N25.81 Secondary hyperparathyroidism of renal origin; R65.10 Systemic inflammatory response syndrome (SIRS) of non-infectious origin without acute organ dysfunction; J98.11 Atelectasis; R18.8 Other ascites; W19.XXXA Unspecified fall, initial encounter; I95.9 Hypotension, unspecified; D64.9 Anemia, unspecified; E78.5 Hyperlipidemia, unspecified; E86.0 Dehydration; I07.1 Rheumatic tricuspid insufficiency; I25.10 Atherosclerotic heart disease of native coronary artery without angina pectoris; I25.5 Ischemic cardiomyopathy; K21.9 Gastro-esophageal reflux disease without esophagitis; K43.2 Incisional hernia without obstruction or gangrene; R16.0 Hepatomegaly, not elsewhere classified; K66.0 Peritoneal adhesions (postprocedural) (postinfection); Y93.89 Activity, other specified; Y99.8 Other external cause status; Z79.02 Long term (current) use of antithrombotics/antiplatelets; Z85.42 Personal history of malignant neoplasm of other parts of uterus; Z79.899 Other long term (current) drug therapy; Z86.73 Personal history of transient ischemic attack (TIA), and cerebral infarction without residual deficits; Z90.49 Acquired absence of other specified parts of digestive tract; Z99.2 Dependence on renal dialysis; Z90.710 Acquired absence of both cervix and uterus; Z95.1 Presence of aortocoronary bypass graft; Y92.009 Unspecified place in unspecified non-institutional (private) residence as the place of occurrence of the external cause; Z68.36 Body mass index [BMI] 36.0-36.9, adult
CPT/HCPCS: 36415; 36558; 36569; 36600; 70450; 71045; 73110; 74018; 74176; 76705; 76937; 77001; 80048; 80053; 80061; 82375; 82550; 82553; 82805; 82962; 83036; 83605; 83690; 83735; 83880; 84100; 84439; 84443; 84484; 85025; 85027; 85379; 85610; 87040; 93005; 93306; 93971; 94002; 94640; 96361; 96374; 96376; 97110; 97116; 97163; 97166; 97530; 97535; 99285; C1750; C1769; C1887; C9113; J0330; J0360; J1100; J1642; J1650; J1956; J2250; J2270; J2370; J2405; J2543; J2704; J3010; J3490; J7030; J7040; J7050; J7060; J7620; P9041